=== PATIENT | male | born 2000 | race Caucasian/White ===

== ENCOUNTER 2020-12-03 21:49 | Emergency (ER) | payer MEDICAID ==
[~2020-12-03] VITALS: Ht 182.9 cm; Wt 90.9 kg
[2020-12-03] MEDS ORDERED: CEPH500C5 PO (23:13)
[2020-12-03] MEDS ORDERED: SULF1TAB49 PO (23:13)
[2020-12-03] MEDS ORDERED: sulfamethoxazole/trimethoprim DS (800/160mg) tablet PO ONE (23:15)
[2020-12-03 23:34] VITALS: BP 141/84
== END 2020-12-03 23:36 | disposition home or self-care (01) ==
LOC: ER 21:49
DX: L02.413 Cutaneous abscess of right upper limb (principal); Z91.011 Allergy to milk products; Z79.2 Long term (current) use of antibiotics; Z79.899 Other long term (current) drug therapy
CPT/HCPCS: 99283

== ENCOUNTER 2020-12-21 20:38 | Emergency (ER) | payer MEDICARE ==
[~2020-12-21 20:38] MED LIST: CEPH-585 PO
[2020-12-22] MEDS ORDERED: CEPH250T PO (18:39)
[2020-12-22] MEDS ORDERED: SULF1TAB49 PO (18:39)
== END 2020-12-21 21:35 | disposition left against medical advice (07) ==
LOC: ER 20:39
DX: L02.221 Furuncle of abdominal wall (principal); Z53.21 Procedure and treatment not carried out due to patient leaving prior to being seen by health care provider

== ENCOUNTER 2020-12-22 17:21 | Emergency (ER) | payer MEDICARE, MEDICAID ==
[~2020-12-22] VITALS: Ht 177.8 cm; Wt 97.7 kg
[2020-12-22] MEDS ORDERED: TETanus/Pertussis (Acell)/Diphther VAC/PF (Tdap-Adult) 0.5ml syringe IMVAC ONE (18:30)
[2020-12-22] MEDS ORDERED: CEPH250T PO (18:39)
[2020-12-22] MEDS ORDERED: SULF1TAB49 PO (18:39)
[2020-12-22] MEDS ORDERED: LIDOcaine 1% W/epiNEPHrine 1:200,000 10ml vial IJ ONE (19:20)
[2020-12-22 19:56] VITALS: BP 132/79
== END 2020-12-22 19:57 | disposition home or self-care (01) ==
LOC: ER 17:21
DX: K65.1 Peritoneal abscess (principal); F17.200 Nicotine dependence, unspecified, uncomplicated; Z20.3 Contact with and (suspected) exposure to rabies; Z98.890 Other specified postprocedural states; Z72.89 Other problems related to lifestyle; Z91.011 Allergy to milk products; Z79.2 Long term (current) use of antibiotics
CPT/HCPCS: 10060; 90471; 90715; 99283

== ENCOUNTER 2020-12-26 21:12 | Emergency (ER) | payer MEDICARE, MEDICAID ==
[~2020-12-26] VITALS: Ht 177.8 cm; Wt 97.7 kg
[~2020-12-26 21:12] MED LIST changes: +CEPH250T PO; +SULF1TAB49 PO
[2020-12-26 21:40] VITALS: BP 143/62
== END 2020-12-26 22:20 | disposition home or self-care (01) ==
LOC: ER 21:12
DX: L02.211 Cutaneous abscess of abdominal wall (principal); Z91.011 Allergy to milk products; Z79.2 Long term (current) use of antibiotics; Z79.899 Other long term (current) drug therapy
CPT/HCPCS: 99282

== ENCOUNTER 2021-01-18 02:43 | Emergency (ER) | payer MEDICARE, MEDICAID ==
[~2021-01-18] VITALS: Ht 177.8 cm; Wt 89.3 kg
[~2021-01-18 02:43] MED LIST changes: -CEPH250T PO; -SULF1TAB49 PO
[2021-01-18] MEDS ORDERED: acetaminophen 325mg tablet PO ONE (03:00)
[2021-01-18] MEDS ORDERED: cephalexin 250mg capsule PO ONE (03:00)
[2021-01-18] MEDS ORDERED: sulfamethoxazole/trimethoprim DS (800/160mg) tablet PO ONE (03:00)
[2021-01-18] MEDS ORDERED: CEPH-585 PO (03:10)
[2021-01-18 03:20] VITALS: BP 120/73
== END 2021-01-18 03:25 | disposition home or self-care (01) ==
LOC: ER 02:43
DX: L03.115 Cellulitis of right lower limb (principal); M79.605 Pain in left leg; Z98.890 Other specified postprocedural states; Z59.0 Homelessness; Z91.011 Allergy to milk products; Z79.2 Long term (current) use of antibiotics
CPT/HCPCS: 99284

== ENCOUNTER 2021-02-22 12:21 | Emergency (ER) | payer MEDICARE, MEDICAID ==
[~2021-02-22] VITALS: Ht 177.8 cm; Wt 95.1 kg
[2021-02-22 13:01] LABS: BASOPHILS # (AUTO) 0.1 X10'3 (0-0.2); BASOPHILS % (AUTO) 0.5 % (0-1); EOSINOPHILS # (AUTO) 0.1 X10'3 (0-0.9); EOSINOPHILS % (AUTO) 1.2 % (0-6); HEMATOCRIT 43.8 % (42.0-52.0); LYMPHOCYTES # (AUTO) 2.1 X10'3 (1.1-4.8); LYMPHOCYTES % (AUTO) 19.8 % (21-51); MEAN CORPUSCULAR HEMOGLOBIN 31.8 PG (27.0-31.0); MEAN CORPUSCULAR HGB CONC 34.3 g/dL (33.0-36.5); MEAN CORPUSCULAR VOLUME 92.7 FL (78-98); MONOCYTES # (AUTO) 0.6 X10'3 (0-0.9); MONOCYTES % (AUTO) 6.1 % (2-12); NEUTROPHILS # (AUTO) 7.7 X10'3 (1.8-7.7); NEUTROPHILS % (AUTO) 72.4 % (42-75); PLATELET COUNT 232 X10'3 (140-440); RED BLOOD COUNT 4.72 X10'6 (4.70-6.10); RED CELL DISTRIBUTION WIDTH 12.6 % (11.5-14.5); WHITE BLOOD COUNT 10.6 X10'3 (4.5-11.0)
[2021-02-22 13:17] LABS: ALANINE AMINOTRANSFERASE 27 U/L (12-78); ALBUMIN/GLOBULIN RATIO 1.1 (1.1-1.5); ALKALINE PHOSPHATASE 75 IU/L (46-116); ANION GAP 7 (8-16); ASPARTATE AMINO TRANSFERASE 18 U/L (10-37); BILIRUBIN,TOTAL 0.4 MG/DL (0.1-1.0); BLOOD UREA NITROGEN 12 MG/DL (7-18); BUN/CREATININE RATIO 14.8 (5.4-32.0); CALCIUM 9.7 MG/DL (8.5-10.1); CHLORIDE 106 MMOL/L (99-107); CREATININE 0.81 MG/DL (0.60-1.10); GLUCOSE 95 MG/DL (70-104); LIPASE 111 U/L (73-393); POTASSIUM 4.1 MMOL/L (3.5-5.1); SODIUM 142 MMOL/L (135-145); TOTAL CARBON DIOXIDE 29.2 MMOL/L (24-32); TOTAL PROTEIN 7.5 G/DL (6.4-8.2); eGFR > 90 ML/MIN
[2021-02-22 13:59] VITALS: BP 113/60
== END 2021-02-22 14:03 | disposition home or self-care (01) ==
LOC: ER 12:21
DX: R10.84 Generalized abdominal pain (principal); R11.2 Nausea with vomiting, unspecified; R19.7 Diarrhea, unspecified; Z59.0 Homelessness; Z91.011 Allergy to milk products; Z98.890 Other specified postprocedural states; Z79.2 Long term (current) use of antibiotics
CPT/HCPCS: 36415; 80053; 83690; 85025; 99283; 99284